=== PATIENT | female | born 2005 ===

== ENCOUNTER 2024-10-14 06:38 | Outpatient (REF) | payer OTHER, SELFPAY ==
--- NOTE | ~2024-10-14 | US_ITS ---
EXAMINATION: US EXTREMITY, NONVASCULAR CLINICAL INFORMATION: Palpable lump left axillary region. COMPARISON: None available. TECHNIQUE: Grayscale and color Doppler ultrasound imaging of the left axillary region was performed in the region of palpable concern. FINDINGS: There is a dermally based hypoechoic solid appearing mass with through transmission and peripheral increased vascularity measuring 1.4 x 0.5 x 1.1 cm, correlating with the area of palpable concern. This is most likely a sebaceous cyst, possibly superinfected. No additional abnormalities identified in this region. US/US extremity nonvascular kowalski IMPRESSION: 1. Palpable abnormality left axillary region correlates with a dermal lesion measuring 1.4 x 1.5 x 1.1 cm, probable sebaceous cyst, possibly infected. Electronically signed by: Edilberto Kinney MD 10/14/2024 02:19 PM EDT
== END 2024-10-14 06:39 | disposition home or self-care (01) ==
LOC: HO.UMASIMG 06:38
PROVIDERS: Visit Provider Nurse Practitioner
DX: L04.9 Acute lymphadenitis, unspecified (principal)
CPT/HCPCS: 76882

== ENCOUNTER → 2024-10-14 13:00 | Outpatient (BNV) | payer OTHER, SELFPAY | PROVIDERS: Visit Provider Radiology Diagnostic Radiology | DX: L98.8 Other specified disorders of the skin and subcutaneous tissue (principal) | CPT/HCPCS: 76882 ==